=== PATIENT | female | born 1985 | race Caucasian/White ===

== ENCOUNTER 2019-07-15 11:03 | Emergency (ER) | payer MEDICAID ==
[~2019-07-15] VITALS: Ht 165.1 cm; Wt 86.4 kg
[~2019-07-15 11:03] MED LIST: NO HOME MEDICATIONS; NORCO 325 MG-51 TAB PO
[2019-07-15 11:13] VITALS: BP 120/72; TEMP 98.7
[2019-07-15] MEDS ORDERED: ZANAFLEX2 MG PO (11:24)
[2019-07-15] MEDS ORDERED: MOTRIN 800800 MG/TAB PO (11:25)
[2019-07-15 13:25] VITALS: PULSE 69
== END 2019-07-15 13:25 | disposition home or self-care (01) ==
LOC: COL.ER 11:03
DX: N63.20 Unspecified lump in the left breast, unspecified quadrant (principal)

== ENCOUNTER → 2019-07-18 | Outpatient (CLI) | payer MEDICAID ==
[~2019-07-18] MED LIST changes: +MOTRIN 800800 MG/TAB PO; +ZANAFLEX2 MG PO
== END ==
LOC: MC.RAD 12:59
DX: N63.10 Unspecified lump in the right breast, unspecified quadrant (principal); N63.20 Unspecified lump in the left breast, unspecified quadrant; N60.01 Solitary cyst of right breast
CPT/HCPCS: G0279

== ENCOUNTER → 2019-07-25 | Outpatient (CLI) | payer MEDICAID | LOC: MC.RAD 08:00 | DX: N63.21 Unspecified lump in the left breast, upper outer quadrant (principal) ==

== ENCOUNTER 2019-08-18 06:20 | Day surgery (SDC) | payer MEDICAID ==
[2019-08-18] VITALS (7 sets, daily range): BP systolic 94–115; BP diastolic 51–68; PULSE 60–73; TEMP 96.9–98.4
[~2019-08-18] VITALS: Ht 165.1 cm; Wt 88.4 kg
[2019-08-18] MEDS ORDERED: PROAIR HFA0.09 MG/AC IH (06:47)
--- NOTE | 2019-08-18 09:12 | NUR ---
Patient arrives to [facility] [facility] via cart, accompanied by DESIGN ENGINEERING INTERN Sherrell Cuevas and REAL ESTATE PROCESSOR Teofilo Guzman. Bedside report received. The patient is asleep, but arouses to voice. She denies pain or nausea. Monitoring applied - VSS and WNL on room air. She is cold and is given warm blankets for comfort. Call light in reach.
--- NOTE | 2019-08-18 09:15 | NUR ---
VSS and WNL on room air. She is sleeping.
--- NOTE | 2019-08-18 09:45 | NUR ---
Escorted patient to the restroom where she voids large amt clear yellow urine and then returns to room.
--- NOTE | 2019-08-18 10:00 | NUR ---
VSS on room air. She is resting comfortably, sipping water. Family is at the bedside.
--- NOTE | 2019-08-18 10:28 | NUR ---
Patient escorted to the restroom. She voids and returns to the room.
--- NOTE | 2019-08-18 10:30 | NUR ---
Patient is sitting up in bed, chatting with family. She has changed to her clothing. Offered and receives a muffin to eat. Denies any needs.
--- NOTE | 2019-08-18 11:14 | NUR ---
Patient has met discharge criteria. Discharge instructions discussed, denies any questions, and verbalizes understanding. PIV removed with catheter intact and hemostasis achieved. Escorted to the exit via wheelchair. Discharged to home with ride in private vehicle at 1114.
== END 2019-08-18 11:14 | disposition home or self-care (01) ==
LOC: SDCO 06:20
PROVIDERS: Surgery
DX: D24.2 Benign neoplasm of left breast (principal); J45.909 Unspecified asthma, uncomplicated; F32.9 Major depressive disorder, single episode, unspecified; G89.29 Other chronic pain; M54.5 Low back pain; Z80.3 Family history of malignant neoplasm of breast; Z83.3 Family history of diabetes mellitus; Z88.8 Allergy status to other drugs, medicaments and biological substances
CPT/HCPCS: J0690; J2250; J2704; J3010; J7120